=== PATIENT | female | born 1960 | race Two or more races ===

== ENCOUNTER 2019-11-16 17:05 | Emergency (ER) | payer OTHER ==
[2019-11-16 17:10] VITALS: BP 168/81; PULSE 83; TEMP 98.4; BMI 37.0
[2019-11-16] MEDS ORDERED: KETOROLAC TROMETHAMINE 60 MG/2 ML VIAL IM ONE (17:19)
[2019-11-16] MEDS ORDERED: KETOROLAC TROMETHAMINE 60 MG/2 ML VIAL ONE (17:23)
--- NOTE | 2019-11-16 17:32 | PDOC ---
History of Present Illness - General Chief Complaint: Toothache Stated Complaint: TOOTH ACHE LT SIDE Time Seen by Provider: 11/16/19 17:12 History Source: Patient, Family - History of Present Illness Timing/Duration: other Past History - Past Medical History Allergies/Adverse Reactions: Allergies Allergy/AdvReac Type Severity Reaction Status Date / Time No Known Allergies Allergy Verified 11/16/19 17:10 Home Medications: Ambulatory Orders Ibuprofen [Motrin -] 800 mg PO Q6H #30 tablet 11/16/19 COPD: No Diabetes: Yes HTN: Yes Hypercholesterolemia: Yes - Psycho Social/Smoking Cessation Hx Smoking History: Never smoked Review of Systems - Review of Systems Constitutional: No: Chills, Fever *Physical Exam - Vital Signs Last Vital Signs Temp Pulse Resp BP Pulse Ox 98.4 F 83 18 168/81 99 11/16/19 17:08 11/16/19 17:08 11/16/19 17:08 11/16/19 17:08 11/16/19 17:08 - Physical Exam General Appearance: Yes: Appropriately Dressed. No: Apparent Distress HEENT: positive: Normal Voice, Other (poor dentition w/ dental caries, +ttp to L upper incisor where dental venkatesh is present) Respiratory/Chest: negative: Respiratory Distress Integumentary: positive: Dry, Warm Neurologic: positive: Fully Oriented, Alert, Normal Mood/Affect Medical Decision Making - Medical Decision Making 11/16/19 17:24 58-year-old female, h/o HTN, DM, no significant history, here with toothache. Patient states she saw her dentist 4 days ago for L upper molar pain and now scheduled for extraction in 2 days but states since yesterday she now also has pain to L upper incisor. No facial pain, swelling fever or chills. see exam Poor dentition w/ caries, p/w L upper incisor pain No e/o abscess Dc w/ pain control Scheduled to see dentist in 2 days Discharge - Discharge Information Problems reviewed: Yes Clinical Impression/Diagnosis: Pain due to dental caries Condition: Good Disposition: HOME - Additional Discharge Information Prescriptions: Ibuprofen [Motrin -] 800 mg PO Q6H #30 tablet - Follow up/Referral - Patient Discharge Instructions Patient Printed Discharge Instructions: DI for Dental Pain, DI for Tooth Decay Additional Instructions: Take Motrin as directed and follow-up with your dentist at next scheduled appointment on Sunday - Post Discharge Activity
== END 2019-11-16 17:51 | disposition home or self-care (01) ==
LOC: JERFT 17:05
PROC: 3E0233Z Introduction of Anti-inflammatory into Muscle, Percutaneous Approach (ICD-10-PCS; principal; 2019-11-16)
DX: K02.9 Dental caries, unspecified (principal); I10 Essential (primary) hypertension; E11.9 Type 2 diabetes mellitus without complications; E78.00 Pure hypercholesterolemia, unspecified
CPT/HCPCS: 96372; 99281-25